=== PATIENT | male | born 2000 | race Caucasian/White ===

== ENCOUNTER 2022-01-02 07:59 | Emergency (ER) | payer SELFPAY ==
[2022-01-02 08:10] VITALS: BP 137/91; PULSE 121; RESP 24; TEMP 36.6; O2SAT 100; BMI 32.6
--- NOTE | 2022-01-02 08:22 | W.ED.DENTAL ---
HPI - Dental/Oral General: Chief complaint: Dental/Oral Stated complaint: Pain in right side jaw Time Seen by Provider: 01/02/22 07:59 History of Present Illness: Patient is a 21-year-old male who comes to the ED with dental pain. Patient has a bad back right lower molar. He is having 10 out of 10 pain in his right lower jaw that radiates up into the right side of his face. He is seen multiple dentist for this dental issue and they have referred him to an oral surgeon. He is in the process of getting an appointment set up with oral surgeon to have dental pain addressed. Associated symptoms: Denies fever(s) or odynophagia Review of Systems Const: Denies: fever(s), chills or fatigue Eyes: Denies: change in vision or eye discomfort ENMT: Reports: dental pain; Denies: throat pain, odynophagia, nasal discharge or nasal congestion Card: Denies: chest pain, palpitations, edema, swelling of feet/ankles, dyspnea on exertion or orthopnea Resp: Denies: dyspnea, productive cough or non-productive cough GI: Denies: abdominal pain, nausea, vomiting, diarrhea, constipation or hematochezia : Denies: flank pain, difficulty urinating, dysuria or hematuria Musc: Denies: neck pain, back pain or extremity swelling Skin/Breast: Denies: rash or new lesions Neuro: Denies: headache(s), numbness in extremities or weakness in extremities [facility] ED PFSH: Medical History No pertinent family history Surgical History No pertinent past surgical history Physical Exam Const: COMMON NORMALS: patient oriented x3 HENMT: COMMON NORMALS: normocephalic HEAD & SCALP: normocephalic MOUTH: Normal oral and palatal mucosa present TEETH & GINGIVA: Yes abnormal tooth and associated gingiva lower right second molar tender, with associated gingival edema and enamel fractured THROAT: posterior oropharynx normal and uvula midline Neck/C-Spine: COMMON NORMALS: supple GENERAL: Yes normal visual inspection Resp: COMMON NORMALS: normal respiratory effort, No retractions, No use of accessory muscles and clear to auscultation bilaterally AUSCULTATION: clear to auscultation bilaterally Cardio: COMMON NORMALS: regular rate, regular rhythm, S1 normal heart sound present, S2 normal heart sound present, No gallops present (Cardio), No clicks present (Cardio), No murmurs present (Cardio) and Peripheral pulses 2+ throughout RATE: regular rate RHYTHM: regular rhythm HEART SOUNDS: S1 normal heart sound present and S2 normal heart sound present PERIPHERAL PULSES: Peripheral pulses 2+ throughout GI: COMMON NORMALS: Normal to inspection, nondistended, normoactive bowel sounds present, Soft to palpation, non-tender and no masses PALPATION: Yes Soft to palpation : COMMON NORMALS: Yes no CVA tenderness BLADDER/KIDNEY EXAM: Yes no CVA tenderness Back/Pelvis: COMMON NORMALS: no CVA tenderness Extremity: COMMON NORMALS: normal to inspection Neuro: COMMON NORMALS: patient oriented x3 GAIT: Yes Normal gait present Skin: GENERAL SKIN EXAM: dry skin Course Vital Signs: Vital signs: Vital Signs Temperature 98 F 01/02/22 08:10 Pulse Rate 70 01/02/22 08:39 Respiratory Rate 18 01/02/22 08:32 Blood Pressure 137/91 01/02/22 08:10 Pulse Oximetry 98 01/02/22 08:39 Oxygen Delivery Me thod 01/02/22 08:38 MDM - Dental/Oral Medical Decision Making Patient is a 21-year-old male who comes to the ED with dental pain. Patient has a bad back right lower molar. He is having 10 out of 10 pain in his right lower jaw that radiates up into the right side of his face. He is seen multiple dentist for this dental issue and they have referred him to an oral surgeon. He is in the process of getting an appointment set up with oral surgeon to have dental pain addressed. Patient was given a dose of clindamycin and Percocet here in the ED to help with pain. He was stable for discharge home and sent home with a prescription for clindamycin, ibuprofen and some lidocaine viscous. He was also sent home with a prescription for couple hydrocodone to help for any acute pain. Set up appointment with your oral surgeon your dentist recently referred you to. Patient understood and agreed with plan. Discharge Plan Discharge Patient Disposition: Home Clinical Impression: Toothache Condition: Stable Prescriptions: New clindamycin HCl 150 mg capsule 300 mg PO QID 7 Days Qty: 56 0RF Lidocaine Viscous 2 % solution 1 applic mucous membrane Q8H PRN (Reason: pain) Qty: 100 0RF ibuprofen 800 mg tablet 800 mg PO Q8H PRN (Reason: pain) Qty: 30 0RF Discharge Orders: Discharge ED (Routine); Ordered 01/02/22 Ordered By: Jack Liu Referrals: Ronak Metzger MD [Primary Care Provider] - Discharge Diet: Regular Discharge Activity: Increase activity as tolerated Patient Instructions: Toothache (ED) Activity Restrictions/Additional Instructions: Get appointment set up with oral surgeon in [place]. take medications as prescribed. Return to the ER or your medical provider if condition worsens. Please read and understand discharge instructions. Thank you for choosing [facility] for your healthcare needs today. Please realize this is an emergency room and that we are providing you with a medical screening exam and this may not be complete and all inclusive of all the testing and or work up that you may need to determine your ailment or severity of your illness. It is very important that you follow up as instructed or that you return to the Emergency Department should you have concerns or if your condition changes or worsens in any way. Coding Level of Care Code ED Counter [employer] Agent for Alyssa [facility] Exam Comprehensive
[2022-01-02 08:32] VITALS: RESP 18
[2022-01-02] MEDS: oxyCODONE-APAP 5-325 mg Tablet 1 TAB PO (08:32)
[2022-01-02] MEDS: clindamycin 150 mg Capsule 300 MG PO (08:32)
[2022-01-02 08:38] VITALS: PULSE 70; O2SAT 98
[2022-01-02 08:39] VITALS: PULSE 70; O2SAT 98
== END 2022-01-02 08:35 | disposition home or self-care (01) ==
PROVIDERS: Emergency Provider Physician Assistant; PCP Family Medicine
DX: K08.89 Other specified disorders of teeth and supporting structures (principal)
CPT/HCPCS: 99283